=== PATIENT | male | born 1985 | race Caucasian/White ===

== ENCOUNTER 2018-10-08 15:59 | Emergency (ER) | payer OTHER, MEDICAID, SELFPAY ==
[2018-10-08 16:13] VITALS: BP 103/72; PULSE 85; RESP 16; TEMP 37.1; O2SAT 97
--- NOTE | 2018-10-08 17:16 | ED.ALCOHOL ---
HPI - Alcohol <ROMAIN Hogan - Last Filed: 10/08/18 20:05> General Chief Complaint: Toxicology Problem Stated Complaint: OPIATE WITHDRAWAL Time Seen by Provider: 10/08/18 16:53 Source: patient Mode of arrival: ambulatory Limitations: no limitations History of Present Illness HPI narrative: 33yo male with PMH of opioid use x 3 years is here for assistance with finding opioid detox. He has recently started using heroin over the past few days with last use being 1 days ago. Also reports drinking a 6 pack of beer a day for the past few years with last drink being 3 days ago. Denies ever seeking detox before, arrives with supportive family. Denies headaches, hallucinations, diaphoresis, n/v/d, tremors, myalgias, chest pain, SOB, or severe cravings at this time. Related Data Previous Rx's Medication Instructions Recorded hydroxyzine HCl 25 mg PO Q6-8H PRN #10 tab 10/08/18 ondansetron HCl [Zofran] 4 mg PO Q8-12H PRN 4 Days #10 tab 10/08/18 Allergies Allergy/AdvReac Type Severity Reaction Status Date / Time No Known Drug Allergies Allergy Verified 10/08/18 16:16 Review of Systems <ROMAIN Hogan - Last Filed: 10/08/18 20:05> Review of Systems ROS Unobtainable: All systems reviewed & are unremarkable except as noted in HPI and below PFSH <ROMAIN Hogan - Last Filed: 10/08/18 20:05> Medical History (Updated 10/08/18 @ 19:28 by ROMAIN Hogan) Opioid abuse (Chronic) Surgical History (Updated 10/08/18 @ 19:42 by ROMAIN Hogan) No pertinent past surgical history (Acute) Social History details: Here with family. household members: family lives independently: No caregiver/support person: Yes Smoking Status: Current every day smoker Social History details: Here with family. household members: family lives independently: No caregiver/support person: Yes Smoking Status: Current every day smoker Exam <ROMAIN Hogan - Last Filed: 10/08/18 20:05> Narrative Exam Narrative: Initial CIWA Score of 1 Initial Vital Signs Initial Vital Signs: Vital Signs Temperature 98.7 F 10/08/18 16:13 Pulse Rate 85 10/08/18 16:13 Respiratory Rate 16 10/08/18 16:13 Blood Pressure 103/72 10/08/18 16:13 Pulse Oximetry 97 10/08/18 16:13 Const General: cooperative, well developed, well groomed and anxious Nutritional Appearance: average body habitus and well nourished HENND Head: normal to inspection, normocephalic and atraumatic Eyes General: appearance normal, both eyes and all related structures Pupils: PERRL Neck Neck: normal visual inspection Chest Chest: normal inspection of the chest Resp Effort & Inspection: normal respiratory effort and able to speak in complete sentences Cardio Rate: regular rate Rhythm: regular rhythm Heart Sounds: S1 normal and S2 normal GI Inspection: normal to inspection Palpation: soft Auscultation: normal bowel sounds Skin General: no rashes or lesions noted and elasticity normal Neuro General: alert, awake, oriented x3, gait normal, tone normal, moves all extremities and normal light touch, pain and propioception <Romero Razo MD - Last Filed: 10/09/18 05:35> Initial Vital Signs Initial Vital Signs: Vital Signs Temperature 98.7 F 10/08/18 16:13 Pulse Rate 85 10/08/18 16:13 Respiratory Rate 16 10/08/18 16:13 Blood Pressure 103/72 10/08/18 16:13 Pulse Oximetry 97 10/08/18 16:13 Scores <ROMAIN Hogan - Last Filed: 10/08/18 20:05> GCS [place] coma scale eye opening: Spontaneous Aries coma scale verbal response: Orientated [place] coma scale motor response: Obey commands Aries coma scale total score: 15 Course <ROMAIN Hogan - Last Filed: 10/08/18 20:05> Course Narrative: ELECTRICAL TESTER spoke with patient, patient is prefering inpatient treatment. [facility] in [place] was consulted, medical clearance not needed for admission per Crisis Center, was told that patient can call at [phone] to see if a bed is avaliable. DEMARIO Carson gave patient [facility] detox resources as well as [facility] outpatient resources, patient and family ok with this plan. Patient developed slight nausea during visit that resolved with ODT zofran and food (CIWA score of 2). Patient and family ok with plan to discharge patient and follow up with crisis center and DENNIS restrepo tomorrow if not admitted. Orders Ordered: Discontinued Medications Ondansetron HCl (Zofran Odt) 4 mg SL NOW ONE Stop: 10/08/18 18:30 Last Admin: 10/08/18 18:29 Dose: 4 mg Vital Signs - 8 hr 10/08/18 16:13 10/08/18 19:08 Temperature 98.7 F Pulse Rate 85 78 Respiratory Rate 16 14 Blood Pressure 103/72 Blood Pressure [Right Arm] 104/72 Pulse Oximetry 97 98 <Romero Razo MD - Last Filed: 10/09/18 05:35> Orders Ordered: Discontinued Medications Ondansetron HCl (Zofran Odt) 4 mg SL NOW ONE Stop: 10/08/18 18:30 Last Admin: 10/08/18 18:29 Dose: 4 mg Vital Signs - 8 hr 10/08/18 16:13 10/08/18 19:08 Temperature 98.7 F Pulse Rate 85 78 Respiratory Rate 16 14 Blood Pressure 103/72 Blood Pressure [Right Arm] 104/72 Pulse Oximetry 97 98 MDM - Alcohol <ROMAIN Hogan - Last Filed: 10/08/18 20:05> Medical Records Attestation: I reviewed the patient's medical records. Lab Data Attestation: I reviewed the patient's lab results. Result diagrams: 10/08/18 18:02 10/08/18 18:02 Labs: Lab Results 10/08/18 10/08/18 10/08/18 Range/Units 18:02 18:02 18:02 WBC 8.5 (4.5-11.0) X10^3/uL RBC 5.08 (4.5-5.9) X10^6/uL Hgb 15.7 (13.5-17.5) g/dL Hct 45.4 (41-53) % MCV 89.4 (80-100) fL MCH 30.8 (26-34) PG MCHC 34.5 (30-36) % RDW 13.0 (11.6-14.8) % Plt Count 231 (150-400) X10^3/uL Neut % (Auto) 71.4 (50-75) % Lymph % (Auto) 21.1 L (25-40) % Tripp % (Auto) 5.8 (3-14) % Eos % (Auto) 1.2 L (2-4) % Baso % (Auto) 0.5 (0-2) % Neut # (Auto) 6100 (6554-1874) /uL Lymph # (Auto) 1800 (2772-2958) /uL Tripp # (Auto) 500 (0-900) /uL Eos # (Auto) 100 (0-450) /uL Baso # (Auto) 0 (0-100) /uL Sodium 140 (137-145) mmol/L Potassium 4.4 (3.4-5.1) mmol/L Chloride 101 (98-107) mmol/L Carbon Dioxide 27 (22-32) mmol/L BUN 18 (9-20) mg/dL Creatinine 0.70 (0.66-1.25) mg/dL Estimated GFR > 60.0 (>60) mL/min BUN/Creatinine Ratio 25.7 H (6-22) Glucose 99 (70-100) mg/dL Calcium 9.9 (8.4-10.2) mg/dL Total Bilirubin 0.6 (0.2-1.3) mg/dL AST 17 (17-59) IU/L ALT 24 (21-72) IU/L Alkaline Phosphatase 70 (38-126) U/L Total Protein 7.6 (6.3-8.2) g/dL Albumin 4.7 (3.5-5.0) g/dL Globulin 2.9 (1.7-4.1) g/dL Albumin/Globulin Ratio 1.6 (1.0-2.8) TSH 0.65 (0.47-4.68) uIU/mL Urine Color Urine Appearance Urine pH (4.5-8.0) Ur Specific [place] (1.000-1.035) Urine Protein (Negative) Urine Glucose (UA) (Negative) g/dL Urine Ketones (NEGATIVE) Urine Occult Blood (Negative) Urine Nitrate (Negative) Urine Bilirubin (NEGATIVE) Urine Urobilinogen (0.2) E.U./dL Ur Leukocyte Esterase (NEGATIVE) Urine RBC (0-5/HPF) Urine WBC (0-5/HPF) Ur Squamous Epith Cells (0-5/HPF) Urine Bacteria (None) Urine Mucus (Negative) Ur Culture Indicated? Urine Opiates Screen (Negative) Ur Oxycodone Screen (Negative) Urine Methadone Screen (Negative) Ur Barbiturates Screen (Negative) U Tricyclic Antidepress (Negative) Ur Phencyclidine Scrn (Negative) Ur Amphetamines Screen (Negative) U Methamphetamines Scrn (Negative) Ur MDMA Scrn (Ecstasy) (Negative) U Benzodiazepines Scrn (Negative) Urine Cocaine Screen (Negative) U Marijuana (THC) Screen (Negative) Ethyl Alcohol mg/dL 10/08/18 10/08/18 10/08/18 Range/Units 18:02 18:24 18:24 WBC (4.5-11.0) X10^3/uL RBC (4.5-5.9) X10^6/uL Hgb (13.5-17.5) g/dL Hct (41-53) % MCV (80-100) fL MCH (26-34) PG MCHC (30-36) % RDW (11.6-14.8) % Plt Count (150-400) X10^3/uL Neut % (Auto) (50-75) % Lymph % (Auto) (25-40) % Tripp % (Auto) (3-14) % Eos % (Auto) (2-4) % Baso % (Auto) (0-2) % Neut # (Auto) (1527-2044) /uL Lymph # (Auto) (0332-3092) /uL Tripp # (Auto) (0-900) /uL Eos # (Auto) (0-450) /uL Baso # (Auto) (0-100) /uL Sodium (137-145) mmol/L Potassium (3.4-5.1) mmol/L Chloride (98-107) mmol/L Carbon Dioxide (22-32) mmol/L BUN (9-20) mg/dL Creatinine (0.66-1.25) mg/dL Estimated GFR (>60) mL/min BUN/Creatinine Ratio (6-22) Glucose (70-100) mg/dL Calcium (8.4-10.2) mg/dL Total Bilirubin (0.2-1.3) mg/dL AST (17-59) IU/L ALT (21-72) IU/L Alkaline Phosphatase (38-126) U/L Total Protein (6.3-8.2) g/dL Albumin (3.5-5.0) g/dL Globulin (1.7-4.1) g/dL Albumin/Globulin Ratio (1.0-2.8) TSH (0.47-4.68) uIU/mL Urine Color Yellow Urine Appearance Clear Urine pH 6.0 (4.5-8.0) Ur Specific [place] 1.025 (1.000-1.035) Urine Protein Negative (Negative) Urine Glucose (UA) Negative (Negative) g/dL Urine Ketones Negative (NEGATIVE) Urine Occult Blood Negative (Negative) Urine Nitrate Negative (Negative) Urine Bilirubin Negative (NEGATIVE) Urine Urobilinogen 0.2 (0.2) E.U./dL Ur Leukocyte Esterase Negative (NEGATIVE) Urine RBC 1-5/hpf (0-5/HPF) Urine WBC None seen (0-5/HPF) Ur Squamous Epith Cells 0-1 /hpf (0-5/HPF) Urine Bacteria None seen (None) Urine Mucus 1+ H (Negative) Ur Culture Indicated? Cult not indicated Urine Opiates Screen Positive H (Negative) Ur Oxycodone Screen Negative (Negative) Urine Methadone Screen Negative (Negative) Ur Barbiturates Screen Negative (Negative) U Tricyclic Antidepress Negative (Negative) Ur Phencyclidine Scrn Negative (Negative) Ur Amphetamines Screen Positive H (Negative) U Methamphetamines Scrn Positive H (Negative) Ur MDMA Scrn (Ecstasy) Negative (Negative) U Benzodiazepines Scrn Negative (Negative) Urine Cocaine Screen Negative (Negative) U Marijuana (THC) Screen Positive H (Negative) Ethyl Alcohol < 10 mg/dL MDM Narrative Medical decision making narrative: Patient is a 33yo male with chronic opioid use here for voluntary detox. Supportive family willing to assist patient with connection to detox. [facility] stated they did not need medical clearance so discharge was appropriate. Low suspicion of ETOH withdrawal as patient's last drink was 3 days ago, ETOH level < 10, and highest CIWA score of 2 during visit. <Romero Razo MD - Last Filed: 10/09/18 05:35> Lab Data Labs: Lab Results 10/08/18 10/08/18 10/08/18 Range/Units 18:02 18:02 18:02 WBC 8.5 (4.5-11.0) X10^3/uL RBC 5.08 (4.5-5.9) X10^6/uL Hgb 15.7 (13.5-17.5) g/dL Hct 45.4 (41-53) % MCV 89.4 (80-100) fL MCH 30.8 (26-34) PG MCHC 34.5 (30-36) % RDW 13.0 (11.6-14.8) % Plt Count 231 (150-400) X10^3/uL Neut % (Auto) 71.4 (50-75) % Lymph % (Auto) 21.1 L (25-40) % Tripp % (Auto) 5.8 (3-14) % Eos % (Auto) 1.2 L (2-4) % Baso % (Auto) 0.5 (0-2) % Neut # (Auto) 6100 (5091-1346) /uL Lymph # (Auto) 1800 (6761-1512) /uL Tripp # (Auto) 500 (0-900) /uL Eos # (Auto) 100 (0-450) /uL Baso # (Auto) 0 (0-100) /uL Sodium 140 (137-145) mmol/L Potassium 4.4 (3.4-5.1) mmol/L Chloride 101 (98-107) mmol/L Carbon Dioxide 27 (22-32) mmol/L BUN 18 (9-20) mg/dL Creatinine 0.70 (0.66-1.25) mg/dL Estimated GFR > 60.0 (>60) mL/min BUN/Creatinine Ratio 25.7 H (6-22) Glucose 99 (70-100) mg/dL Calcium 9.9 (8.4-10.2) mg/dL Total Bilirubin 0.6 (0.2-1.3) mg/dL AST 17 (17-59) IU/L ALT 24 (21-72) IU/L Alkaline Phosphatase 70 (38-126) U/L Total Protein 7.6 (6.3-8.2) g/dL Albumin 4.7 (3.5-5.0) g/dL Globulin 2.9 (1.7-4.1) g/dL Albumin/Globulin Ratio 1.6 (1.0-2.8) TSH 0.65 (0.47-4.68) uIU/mL Urine Color Urine Appearance Urine pH (4.5-8.0) Ur Specific [place] (1.000-1.035) Urine Protein (Negative) Urine Glucose (UA) (Negative) g/dL Urine Ketones (NEGATIVE) Urine Occult Blood (Negative) Urine Nitrate (Negative) Urine Bilirubin (NEGATIVE) Urine Urobilinogen (0.2) E.U./dL Ur Leukocyte Esterase (NEGATIVE) Urine RBC (0-5/HPF) Urine WBC (0-5/HPF) Ur Squamous Epith Cells (0-5/HPF) Urine Bacteria (None) Urine Mucus (Negative) Ur Culture Indicated? Urine Opiates Screen (Negative) Ur Oxycodone Screen (Negative) Urine Methadone Screen (Negative) Ur Barbiturates Screen (Negative) U Tricyclic Antidepress (Negative) Ur Phencyclidine Scrn (Negative) Ur Amphetamines Screen (Negative) U Methamphetamines Scrn (Negative) Ur MDMA Scrn (Ecstasy) (Negative) U Benzodiazepines Scrn (Negative) Urine Cocaine Screen (Negative) U Marijuana (THC) Screen (Negative) Ethyl Alcohol mg/dL 10/08/18 10/08/18 10/08/18 Range/Units 18:02 18:24 18:24 WBC (4.5-11.0) X10^3/uL RBC (4.5-5.9) X10^6/uL Hgb (13.5-17.5) g/dL Hct (41-53) % MCV (80-100) fL MCH (26-34) PG MCHC (30-36) % RDW (11.6-14.8) % Plt Count (150-400) X10^3/uL Neut % (Auto) (50-75) % Lymph % (Auto) (25-40) % Tripp % (Auto) (3-14) % Eos % (Auto) (2-4) % Baso % (Auto) (0-2) % Neut # (Auto) (0219-1782) /uL Lymph # (Auto) (1084-4769) /uL Tripp # (Auto) (0-900) /uL Eos # (Auto) (0-450) /uL Baso # (Auto) (0-100) /uL Sodium (137-145) mmol/L Potassium (3.4-5.1) mmol/L Chloride (98-107) mmol/L Carbon Dioxide (22-32) mmol/L BUN (9-20) mg/dL Creatinine (0.66-1.25) mg/dL Estimated GFR (>60) mL/min BUN/Creatinine Ratio (6-22) Glucose (70-100) mg/dL Calcium (8.4-10.2) mg/dL Total Bilirubin (0.2-1.3) mg/dL AST (17-59) IU/L ALT (21-72) IU/L Alkaline Phosphatase (38-126) U/L Total Protein (6.3-8.2) g/dL Albumin (3.5-5.0) g/dL Globulin (1.7-4.1) g/dL Albumin/Globulin Ratio (1.0-2.8) TSH (0.47-4.68) uIU/mL Urine Color Yellow Urine Appearance Clear Urine pH 6.0 (4.5-8.0) Ur Specific [place] 1.025 (1.000-1.035) Urine Protein Negative (Negative) Urine Glucose (UA) Negative (Negative) g/dL Urine Ketones Negative (NEGATIVE) Urine Occult Blood Negative (Negative) Urine Nitrate Negative (Negative) Urine Bilirubin Negative (NEGATIVE) Urine Urobilinogen 0.2 (0.2) E.U./dL Ur Leukocyte Esterase Negative (NEGATIVE) Urine RBC 1-5/hpf (0-5/HPF) Urine WBC None seen (0-5/HPF) Ur Squamous Epith Cells 0-1 /hpf (0-5/HPF) Urine Bacteria None seen (None) Urine Mucus 1+ H (Negative) Ur Culture Indicated? Cult not indicated Urine Opiates Screen Positive H (Negative) Ur Oxycodone Screen Negative (Negative) Urine Methadone Screen Negative (Negative) Ur Barbiturates Screen Negative (Negative) U Tricyclic Antidepress Negative (Negative) Ur Phencyclidine Scrn Negative (Negative) Ur Amphetamines Screen Positive H (Negative) U Methamphetamines Scrn Positive H (Negative) Ur MDMA Scrn (Ecstasy) Negative (Negative) U Benzodiazepines Scrn Negative (Negative) Urine Cocaine Screen Negative (Negative) U Marijuana (THC) Screen Positive H (Negative) Ethyl Alcohol < 10 mg/dL Critical Care Time <ROMAIN Hogan - Last Filed: 10/08/18 20:05> Critical Care Time: No Discharge Plan Departure Patient Disposition: Home Clinical Impression: Opioid use with withdrawal Discharge Date/Time: 10/08/18 19:57 Interventions: ED Discharge Assessment Last Done: 10/08/18 19:57 Instructions: DI for Alcohol Abuse, DI for Drug Abuse and Drug Addiction Activity Restrictions/Additional Instructions: Thank you for seeking care at [facility] today. Call [facility] at [phone] to see if a bed is available, Yamileth our social media specialist also gave you outpatient resources to contact if needed. Follow-up with your primary care provider tomorrow as scheduled. I have prescribed you medication for nausea and opioid withdrawal. Return to the emergency department if you experience profuse sweating, tremors, seizures, or chest pain. Prescriptions: New hydroxyzine HCl 25 mg tablet 25 mg PO Q6-8H PRN (Reason: nausea and vomiting, opioid withdrawal ) Qty: 10 RF: 0 ondansetron HCl [Zofran] 4 mg tablet 4 mg PO Q8-12H PRN (Reason: nausea and vomiting) 4 Days Qty: 10 RF: 0 <Romero Razo MD - Last Filed: 10/09/18 05:35> Cosign ED Attending Cosignature Attestation: I was present in the ER at the time this patient's care. I agree with the evaluation, assessment and treatment plan.
--- NOTE | 2018-10-08 17:21 | ED_ITS ---
HPI - Alcohol <ROMAIN Hogan - Last Filed: 10/08/18 20:05> General Chief Complaint: Toxicology Problem Stated Complaint: OPIATE WITHDRAWAL Time Seen by Provider: 10/08/18 16:53 Source: patient Mode of arrival: ambulatory Limitations: no limitations History of Present Illness HPI narrative: 33yo male with PMH of opioid use x 3 years is here for assistance with finding opioid detox. He has recently started using heroin over the past few days with last use being 1 days ago. Also reports drinking a 6 pack of beer a day for the past few years with last drink being 3 days ago. Denies ever seeking detox before, arrives with supportive family. Denies headaches, hallucinations, diaphoresis, n/v/d, tremors, myalgias, chest pain, SOB, or severe cravings at this time. Related Data Previous Rx's Medication Instructions Recorded hydroxyzine HCl 25 mg PO Q6-8H PRN #10 tab 10/08/18 ondansetron HCl [Zofran] 4 mg PO Q8-12H PRN 4 Days #10 tab 10/08/18 Allergies Allergy/AdvReac Type Severity Reaction Status Date / Time No Known Drug Allergies Allergy Verified 10/08/18 16:16 Review of Systems <ROMAIN Hogan - Last Filed: 10/08/18 20:05> Review of Systems ROS Unobtainable: All systems reviewed & are unremarkable except as noted in HPI and below PFSH <ROMAIN Hogan - Last Filed: 10/08/18 20:05> Medical History (Updated 10/08/18 @ 19:28 by ROMAIN Hogan) Opioid abuse (Chronic) Surgical History (Updated 10/08/18 @ 19:42 by ROAMIN Hogan) No pertinent past surgical history (Acute) Social History details: Here with family. household members: family lives independently: No caregiver/support person: Yes Smoking Status: Current every day smoker Social History details: Here with family. household members: family lives independently: No caregiver/support person: Yes Smoking Status: Current every day smoker Exam <ROMAIN Hogan - Last Filed: 10/08/18 20:05> Narrative Exam Narrative: Initial CIWA Score of 1 Initial Vital Signs Initial Vital Signs: Vital Signs Temperature 98.7 F 10/08/18 16:13 Pulse Rate 85 10/08/18 16:13 Respiratory Rate 16 10/08/18 16:13 Blood Pressure 103/72 10/08/18 16:13 Pulse Oximetry 97 10/08/18 16:13 Const General: cooperative, well developed, well groomed and anxious Nutritional Appearance: average body habitus and well nourished HENNY Head: normal to inspection, normocephalic and atraumatic Eyes General: appearance normal, both eyes and all related structures Pupils: PERRL Neck Neck: normal visual inspection Chest Chest: normal inspection of the chest Resp Effort & Inspection: normal respiratory effort and able to speak in complete sentences Cardio Rate: regular rate Rhythm: regular rhythm Heart Sounds: S1 normal and S2 normal GI Inspection: normal to inspection Palpation: soft Auscultation: normal bowel sounds Skin General: no rashes or lesions noted and elasticity normal Neuro General: alert, awake, oriented x3, gait normal, tone normal, moves all extremities and normal light touch, pain and propioception <Romero Razo MD - Last Filed: 10/09/18 05:35> Initial Vital Signs Initial Vital Signs: Vital Signs Temperature 98.7 F 10/08/18 16:13 Pulse Rate 85 10/08/18 16:13 Respiratory Rate 16 10/08/18 16:13 Blood Pressure 103/72 10/08/18 16:13 Pulse Oximetry 97 10/08/18 16:13 Scores <ROMAIN Hogan - Last Filed: 10/08/18 20:05> GCS Napoleon coma scale eye opening: Spontaneous Aries coma scale verbal response: Orientated Napoleon coma scale motor response: Obey commands Aries coma scale total score: 15 Course <ROMAIN Hogan - Last Filed: 10/08/18 20:05> Course Narrative: MARINE DIESEL TECHNICIAN spoke with patient, patient is prefering inpatient treatment. [facility] in [place] was consulted, medical clearance not needed for admission per Crisis Center, was told that patient can call at [phone] to see if a bed is avaliable. DEMARIO Carson gave patient [facility] detox resources as well as [facility] outpatient resources, patient and family ok with this plan. Patient developed slight nausea during visit that resolved with ODT zofran and food (CIWA score of 2). Patient and family ok with plan to discharge patient and follow up with crisis center and DENNIS restrepo tomorrow if not admitted. Orders Ordered: Discontinued Medications Ondansetron HCl (Zofran Odt) 4 mg SL NOW ONE Stop: 10/08/18 18:30 Last Admin: 10/08/18 18:29 Dose: 4 mg Vital Signs - 8 hr 10/08/18 16:13 10/08/18 19:08 Temperature 98.7 F Pulse Rate 85 78 Respiratory Rate 16 14 Blood Pressure 103/72 Blood Pressure [Right Arm] 104/72 Pulse Oximetry 97 98 <Romero Razo MD - Last Filed: 10/09/18 05:35> Orders Ordered: Discontinued Medications Ondansetron HCl (Zofran Odt) 4 mg SL NOW ONE Stop: 10/08/18 18:30 Last Admin: 10/08/18 18:29 Dose: 4 mg Vital Signs - 8 hr 10/08/18 16:13 10/08/18 19:08 Temperature 98.7 F Pulse Rate 85 78 Respiratory Rate 16 14 Blood Pressure 103/72 Blood Pressure [Right Arm] 104/72 Pulse Oximetry 97 98 MDM - Alcohol <ROMAIN Hogan - Last Filed: 10/08/18 20:05> Medical Records Attestation: I reviewed the patient's medical records. Lab Data Attestation: I reviewed the patient's lab results. Result diagrams: 10/08/18 18:02 10/08/18 18:02 Labs: Lab Results 10/08/18 10/08/18 10/08/18 Range/Units 18:02 18:02 18:02 WBC 8.5 (4.5-11.0) X10^3/uL RBC 5.08 (4.5-5.9) X10^6/uL Hgb 15.7 (13.5-17.5) g/dL Hct 45.4 (41-53) % MCV 89.4 (80-100) fL MCH 30.8 (26-34) PG MCHC 34.5 (30-36) % RDW 13.0 (11.6-14.8) % Plt Count 231 (150-400) X10^3/uL Neut % (Auto) 71.4 (50-75) % Lymph % (Auto) 21.1 L (25-40) % [place] % (Auto) 5.8 (3-14) % Eos % (Auto) 1.2 L (2-4) % Baso % (Auto) 0.5 (0-2) % Neut # (Auto) 6100 (4373-3493) /uL Lymph # (Auto) 1800 (9936-9607) /uL [place] # (Auto) 500 (0-900) /uL Eos # (Auto) 100 (0-450) /uL Baso # (Auto) 0 (0-100) /uL Sodium 140 (137-145) mmol/L Potassium 4.4 (3.4-5.1) mmol/L Chloride 101 (98-107) mmol/L Carbon Dioxide 27 (22-32) mmol/L BUN 18 (9-20) mg/dL Creatinine 0.70 (0.66-1.25) mg/dL Estimated GFR > 60.0 (>60) mL/min BUN/Creatinine Ratio 25.7 H (6-22) Glucose 99 (70-100) mg/dL Calcium 9.9 (8.4-10.2) mg/dL Total Bilirubin 0.6 (0.2-1.3) mg/dL AST 17 (17-59) IU/L ALT 24 (21-72) IU/L Alkaline Phosphatase 70 (38-126) U/L Total Protein 7.6 (6.3-8.2) g/dL Albumin 4.7 (3.5-5.0) g/dL Globulin 2.9 (1.7-4.1) g/dL Albumin/Globulin Ratio 1.6 (1.0-2.8) TSH 0.65 (0.47-4.68) uIU/mL Urine Color Urine Appearance Urine pH (4.5-8.0) Ur Specific [place] (1.000-1.035) Urine Protein (Negative) Urine Glucose (UA) (Negative) g/dL Urine Ketones (NEGATIVE) Urine Occult Blood (Negative) Urine Nitrate (Negative) Urine Bilirubin (NEGATIVE) Urine Urobilinogen (0.2) E.U./dL Ur Leukocyte Esterase (NEGATIVE) Urine RBC (0-5/HPF) Urine WBC (0-5/HPF) Ur Squamous Epith Cells (0-5/HPF) Urine Bacteria (None) Urine Mucus (Negative) Ur Culture Indicated? Urine Opiates Screen (Negative) Ur Oxycodone Screen (Negative) Urine Methadone Screen (Negative) Ur Barbiturates Screen (Negative) U Tricyclic Antidepress (Negative) Ur Phencyclidine Scrn (Negative) Ur Amphetamines Screen (Negative) U Methamphetamines Scrn (Negative) Ur MDMA Scrn (Ecstasy) (Negative) U Benzodiazepines Scrn (Negative) Urine Cocaine Screen (Negative) U Marijuana (THC) Screen (Negative) Ethyl Alcohol mg/dL 10/08/18 10/08/18 10/08/18 Range/Units 18:02 18:24 18:24 WBC (4.5-11.0) X10^3/uL RBC (4.5-5.9) X10^6/uL Hgb (13.5-17.5) g/dL Hct (41-53) % MCV (80-100) fL MCH (26-34) PG MCHC (30-36) % RDW (11.6-14.8) % Plt Count (150-400) X10^3/uL Neut % (Auto) (50-75) % Lymph % (Auto) (25-40) % [place] % (Auto) (3-14) % Eos % (Auto) (2-4) % Baso % (Auto) (0-2) % Neut # (Auto) (5639-5029) /uL Lymph # (Auto) (3764-0686) /uL [place] # (Auto) (0-900) /uL Eos # (Auto) (0-450) /uL Baso # (Auto) (0-100) /uL Sodium (137-145) mmol/L Potassium (3.4-5.1) mmol/L Chloride (98-107) mmol/L Carbon Dioxide (22-32) mmol/L BUN (9-20) mg/dL Creatinine (0.66-1.25) mg/dL Estimated GFR (>60) mL/min BUN/Creatinine Ratio (6-22) Glucose (70-100) mg/dL Calcium (8.4-10.2) mg/dL Total Bilirubin (0.2-1.3) mg/dL AST (17-59) IU/L ALT (21-72) IU/L Alkaline Phosphatase (38-126) U/L Total Protein (6.3-8.2) g/dL Albumin (3.5-5.0) g/dL Globulin (1.7-4.1) g/dL Albumin/Globulin Ratio (1.0-2.8) TSH (0.47-4.68) uIU/mL Urine Color Yellow Urine Appearance Clear Urine pH 6.0 (4.5-8.0) Ur Specific [place] 1.025 (1.000-1.035) Urine Protein Negative (Negative) Urine Glucose (UA) Negative (Negative) g/dL Urine Ketones Negative (NEGATIVE) Urine Occult Blood Negative (Negative) Urine Nitrate Negative (Negative) Urine Bilirubin Negative (NEGATIVE) Urine Urobilinogen 0.2 (0.2) E.U./dL Ur Leukocyte Esterase Negative (NEGATIVE) Urine RBC 1-5/hpf (0-5/HPF) Urine WBC None seen (0-5/HPF) Ur Squamous Epith Cells 0-1 /hpf (0-5/HPF) Urine Bacteria None seen (None) Urine Mucus 1+ H (Negative) Ur Culture Indicated? Cult not indicated Urine Opiates Screen Positive H (Negative) Ur Oxycodone Screen Negative (Negative) Urine Methadone Screen Negative (Negative) Ur Barbiturates Screen Negative (Negative) U Tricyclic Antidepress Negative (Negative) Ur Phencyclidine Scrn Negative (Negative) Ur Amphetamines Screen Positive H (Negative) U Methamphetamines Scrn Positive H (Negative) Ur MDMA Scrn (Ecstasy) Negative (Negative) U Benzodiazepines Scrn Negative (Negative) Urine Cocaine Screen Negative (Negative) U Marijuana (THC) Screen Positive H (Negative) Ethyl Alcohol < 10 mg/dL MDM Narrative Medical decision making narrative: Patient is a 33yo male with chronic opioid use here for voluntary detox. Supportive family willing to assist patient with connection to detox. [facility] stated they did not need medical cl earance so discharge was appropriate. Low suspicion of ETOH withdrawal as patient's last drink was 3 days ago, ETOH level < 10, and highest CIWA score of 2 during visit. <Romero Razo MD - Last Filed: 10/09/18 05:35> Lab Data Labs: Lab Results 10/08/18 10/08/18 10/08/18 Range/Units 18:02 18:02 18:02 WBC 8.5 (4.5-11.0) X10^3/uL RBC 5.08 (4.5-5.9) X10^6/uL Hgb 15.7 (13.5-17.5) g/dL Hct 45.4 (41-53) % MCV 89.4 (80-100) fL MCH 30.8 (26-34) PG MCHC 34.5 (30-36) % RDW 13.0 (11.6-14.8) % Plt Count 231 (150-400) X10^3/uL Neut % (Auto) 71.4 (50-75) % Lymph % (Auto) 21.1 L (25-40) % [place] % (Auto) 5.8 (3-14) % Eos % (Auto) 1.2 L (2-4) % Baso % (Auto) 0.5 (0-2) % Neut # (Auto) 6100 (4306-1024) /uL Lymph # (Auto) 1800 (6006-4498) /uL [place] # (Auto) 500 (0-900) /uL Eos # (Auto) 100 (0-450) /uL Baso # (Auto) 0 (0-100) /uL Sodium 140 (137-145) mmol/L Potassium 4.4 (3.4-5.1) mmol/L Chloride 101 (98-107) mmol/L Carbon Dioxide 27 (22-32) mmol/L BUN 18 (9-20) mg/dL Creatinine 0.70 (0.66-1.25) mg/dL Estimated GFR > 60.0 (>60) mL/min BUN/Creatinine Ratio 25.7 H (6-22) Glucose 99 (70-100) mg/dL Calcium 9.9 (8.4-10.2) mg/dL Total Bilirubin 0.6 (0.2-1.3) mg/dL AST 17 (17-59) IU/L ALT 24 (21-72) IU/L Alkaline Phosphatase 70 (38-126) U/L Total Protein 7.6 (6.3-8.2) g/dL Albumin 4.7 (3.5-5.0) g/dL Globulin 2.9 (1.7-4.1) g/dL Albumin/Globulin Ratio 1.6 (1.0-2.8) TSH 0.65 (0.47-4.68) uIU/mL Urine Color Urine Appearance Urine pH (4.5-8.0) Ur Specific [place] (1.000-1.035) Urine Protein (Negative) Urine Glucose (UA) (Negative) g/dL Urine Ketones (NEGATIVE) Urine Occult Blood (Negative) Urine Nitrate (Negative) Urine Bilirubin (NEGATIVE) Urine Urobilinogen (0.2) E.U./dL Ur Leukocyte Esterase (NEGATIVE) Urine RBC (0-5/HPF) Urine WBC (0-5/HPF) Ur Squamous Epith Cells (0-5/HPF) Urine Bacteria (None) Urine Mucus (Negative) Ur Culture Indicated? Urine Opiates Screen (Negative) Ur Oxycodone Screen (Negative) Urine Methadone Screen (Negative) Ur Barbiturates Screen (Negative) U Tricyclic Antidepress (Negative) Ur Phencyclidine Scrn (Negative) Ur Amphetamines Screen (Negative) U Methamphetamines Scrn (Negative) Ur MDMA Scrn (Ecstasy) (Negative) U Benzodiazepines Scrn (Negative) Urine Cocaine Screen (Negative) U Marijuana (THC) Screen (Negative) Ethyl Alcohol mg/dL 10/08/18 10/08/18 10/08/18 Range/Units 18:02 18:24 18:24 WBC (4.5-11.0) X10^3/uL RBC (4.5-5.9) X10^6/uL Hgb (13.5-17.5) g/dL Hct (41-53) % MCV (80-100) fL MCH (26-34) PG MCHC (30-36) % RDW (11.6-14.8) % Plt Count (150-400) X10^3/uL Neut % (Auto) (50-75) % Lymph % (Auto) (25-40) % [place] % (Auto) (3-14) % Eos % (Auto) (2-4) % Baso % (Auto) (0-2) % Neut # (Auto) (5664-3775) /uL Lymph # (Auto) (9034-7385) /uL [place] # (Auto) (0-900) /uL Eos # (Auto) (0-450) /uL Baso # (Auto) (0-100) /uL Sodium (137-145) mmol/L Potassium (3.4-5.1) mmol/L Chloride (98-107) mmol/L Carbon Dioxide (22-32) mmol/L BUN (9-20) mg/dL Creatinine (0.66-1.25) mg/dL Estimated GFR (>60) mL/min BUN/Creatinine Ratio (6-22) Glucose (70-100) mg/dL Calcium (8.4-10.2) mg/dL Total Bilirubin (0.2-1.3) mg/dL AST (17-59) IU/L ALT (21-72) IU/L Alkaline Phosphatase (38-126) U/L Total Protein (6.3-8.2) g/dL Albumin (3.5-5.0) g/dL Globulin (1.7-4.1) g/dL Albumin/Globulin Ratio (1.0-2.8) TSH (0.47-4.68) uIU/mL Urine Color Yellow Urine Appearance Clear Urine pH 6.0 (4.5-8.0) Ur Specific [place] 1.025 (1.000-1.035) Urine Protein Negative (Negative) Urine Glucose (UA) Negative (Negative) g/dL Urine Ketones Negative (NEGATIVE) Urine Occult Blood Negative (Negative) Urine Nitrate Negative (Negative) Urine Bilirubin Negative (NEGATIVE) Urine Urobilinogen 0.2 (0.2) E.U./dL Ur Leukocyte Esterase Negative (NEGATIVE) Urine RBC 1-5/hpf (0-5/HPF) Urine WBC None seen (0-5/HPF) Ur Squamous Epith Cells 0-1 /hpf (0-5/HPF) Urine Bacteria None seen (None) Urine Mucus 1+ H (Negative) Ur Culture Indicated? Cult not indicated Urine Opiates Screen Positive H (Negative) Ur Oxycodone Screen Negative (Negative) Urine Methadone Screen Negative (Negative) Ur Barbiturates Screen Negative (Negative) U Tricyclic Antidepress Negative (Negative) Ur Phencyclidine Scrn Negative (Negative) Ur Amphetamines Screen Positive H (Negative) U Methamphetamines Scrn Positive H (Negative) Ur MDMA Scrn (Ecstasy) Negative (Negative) U Benzodiazepines Scrn Negative (Negative) Urine Cocaine Screen Negative (Negative) U Marijuana (THC) Screen Positive H (Negative) Ethyl Alcohol < 10 mg/dL Critical Care Time <ROMAIN oHgan - Last Filed: 10/08/18 20:05> Critical Care Time: No Discharge Plan Departure Patient Disposition: Home Clinical Impression: Opioid use with withdrawal Discharge Date/Time: 10/08/18 19:57 Interventions: ED Discharge Assessment Last Done: 10/08/18 19:57 Instructions: DI for Alcohol Abuse, DI for Drug Abuse and Drug Addiction Activity Restrictions/Additional Instructions: Thank you for seeking care at [facility] today. Call [facility] at 2100 to see if a bed is available, Yamileth our social security benefits interviewer also gave you outpatient resources to contact if needed. Follow-up with your primary care provider tomorrow as scheduled. I have prescribed you medication for nausea and opioid withdrawal. Return to the emergency department if you experience profuse sweating, tremors, seizures, or chest pain. Prescriptions: New hydroxyzine HCl 25 mg tablet 25 mg PO Q6-8H PRN (Reason: nausea and vomiting, opioid withdrawal ) Qty: 10 RF: 0 ondansetron HCl [Zofran] 4 mg tablet 4 mg PO Q8-12H PRN (Reason: nausea and vomiting) 4 Days Qty: 10 RF: 0 <Romero Razo MD - Last Filed: 10/09/18 05:35> Cosign ED Attending Cosvickature Attestation: I was present in the ER at the time this patient's care. I agree with the evaluation, assessment and treatment plan.
[2018-10-08 18:09] LABS: Add Manual Diff / Slide Review NO; Basophils Absolute Auto 0 /uL (0-100); Basophils Percent Auto 0.5 % (0-2); Eosinophils Absolute Auto 100 /uL (0-450); Eosinophils Percent Auto 1.2 % (2-4); Hematocrit 45.4 % (41-53); Hemoglobin 15.7 g/dL (13.5-17.5); Lymphocytes Absolute Auto 1800 /uL (1100-4500); Lymphocytes Percent Auto 21.1 % (25-40); Mean Corpuscular HGB Conc 34.5 % (30-36); Mean Corpuscular Hemoglobin 30.8 PG (26-34); Mean Corpuscular Volume 89.4 fL (80-100); Monocytes Absolute Auto 500 /uL (0-900); Monocytes Percent Auto 5.8 % (3-14); Neutrophils Absolute Auto 6100 /uL (1500-7000); Neutrophils Percent Auto 71.4 % (50-75); Platelet Count 231 X10^3/uL (150-400); Red Blood Cell Count 5.08 X10^6/uL (4.5-5.9); White Blood Cell Count 8.5 X10^3/uL (4.5-11.0)
[2018-10-08 18:19] LABS: Ethanol (ETOH) < 10 mg/dL
[2018-10-08 18:20] LABS: Alanine Aminotransferase 24 IU/L (21-72); Albumin 4.7 g/dL (3.5-5.0); Albumin Globulin Ratio 1.6 (1.0-2.8); Alkaline Phosphatase 70 U/L (38-126); Aspartate Aminotransferase 17 IU/L (17-59); BUN Creatinine Ratio 25.7 (6-22); Bilirubin Total 0.6 mg/dL (0.2-1.3); Blood Urea Nitrogen 18 mg/dL (9-20); Calcium 9.9 mg/dL (8.4-10.2); Carbon Dioxide 27 mmol/L (22-32); Chloride 101 mmol/L (98-107); Estimated Glomerular Filt Rate > 60.0 mL/min (>60); Globulin 2.9 g/dL (1.7-4.1); Glucose 99 mg/dL (70-100); HEMOLYSIS < 15 (0-50); Potassium 4.4 mmol/L (3.4-5.1); Sodium 140 mmol/L (137-145); Total Protein 7.6 g/dL (6.3-8.2)
--- NOTE | 2018-10-08 18:27 | CM.SWNOTE ---
ED CORRECTIVE AND MANUAL ARTS THERAPIST Note Presenting Problem: Pt is a 33 yo male who presented to the Emergency Department today with his family. He is requesting help with detox and hopes to be able to go into an inpatient setting. He has recently begun using IV heroin with last use yesterday. Mental Health/Substance abuse Hx: Patient stated that he has dealt with both anxiety and depression. He has been prescribed prozac and Lexapro, but has been using opiates during this time, so it is unknown if these medications could have been beneficial. Pt began using alcohol at the age of 14/15. He stated that alcohol is not his drug of choice at this time. He was in an alcohol rehab in 2011 and reported that he was able to remain clean and sober for up to 2 years. Pt stated that this was located in [place] and believes this was a 28 day program. Pt. reported that he has been using hydrocodone and oxycodone for the past 3 years. He generally takes 5-10, 10 mg pills, but has been having more difficulty obtaining the opiates so recently switched to IV heroin. Pt's mother wondered if drug use began after his hernia operation in 2013. Pt stated that he did not begin the drug use at that time,b ut was introduced to the pain killers post operatively. Family History/ mental health/substance abuse: Pt. reported that his paternal grandfather was addicted to pain killers. it was noted by the family that he was a pharmacist by occupation. Pt's sister is also a recovering alcoholic. There is a significant family history for both anxiety and depression. Pt's other sister has had a history of anxiety and panic attacks. Mental Status: Pt is a 33 yo male who looks his stated age. Eye contact was fair to goo. He is very cooperative and motivated for treatment. Speech is normal for rate and rhythm and goal directed. There is no sign of any psychotic thought process. Pt appears to have good insight and judgment. He denies SI or HI. Memory test was not conducted, but pt's memory appears WNL. Plan: It is expected that pt will be discharged home and has been provided with names and phone numbers of detox facilities to contact tomorrow. It is possible that [facility] may have a bed this evening and if not still in the emergency department, they should call at 9 PM this evening. Pt is aware that he can return to the emergency department if symptoms worsen. Family is supportive and available to help patient make the phone calls as needed. Discharge Planning/Care Management ED Crisis Response Assessment Start: 10/08/18 18:14 Freq: Status: Active Protocol: Document 10/08/18 18:14 BG (Rec: 10/08/18 18:26 BG [id number]) ED Crisis Response Assessment CORRECTIVE AND MANUAL ARTS THERAPIST Assessment Type Substance Abuse Reason for CORRECTIVE AND MANUAL ARTS THERAPIST Referral Pt with hx of opiate abuse and recent IV heroin use requesting help with substance abuse. Referred by PAIGE Hogan Presenting Problem Pt reported a hx of taking hydrocodone, oxycodone, 5-10 10 mg per day. Most recently due to inability to get these drugs, he stated shooting up heroin. This has been for 12 days. Today he contacted his mother and sister and told them that he needed help. Mental health diagnosis Pt reports a hx of anxiety and depression. VOA/CMS check No Suicidal thoughts No Past Suicidal thoughts No Current Suicidal thoughts No Prior Suicide attempts No Current plan for self harm No Thoughts of harm to others No Past thoughts of harm to others No Current thoughts of harming others No Prior attempts to harm others No Current plan to harm others No Current Risk factors Substance abuse Financial difficulties Risk factor comments Pt reported that he is using all his money for drugs so has not had money for food, despite being employed and having a good job. Crisis Plan ED CORRECTIVE AND MANUAL ARTS THERAPIST has attempted to find inpatient programs at pt's request. At this time there are no beds available or programs are closed for the day. It is anticipated that pt will discharge home with family and contact the Crisis Center later t his evening. Pt 's record has been faxed to the crisis center. Resources Provided Pt and family have been provided with information for [facility] , [facility] , [facility] and [facility] [phone].
[2018-10-08] MEDS: ONDANSETRON 4 MG ODT SL (18:29)
[2018-10-08 18:40] LABS: Bacteria Urine None Seen; WBC Urine None Seen (0-5/HPF)
[2018-10-08 18:43] LABS: Appearance Urine UA CLEAR; Bilirubin Urine UA NEGATIVE (NEGATIVE); Color Urine UA YELLOW; Glucose Urine UA NEGATIVE (Negative); Ketones Urine UA NEGATIVE (NEGATIVE); Leukocyte Esterase Urine UA NEGATIVE (NEGATIVE); Nitrite Urine UA NEGATIVE (Negative); Occult Blood Urine UA NEGATIVE (Negative); Protein Urine UA NEGATIVE (Negative); Specific Gravity Urine UA 1.025 (1.000-1.035); Urobilinogen Urine UA 0.2 E.U./dL (0.2)
[2018-10-08 18:49] LABS: Urine Amphetamines Positive (Negative); Urine Barbiturates Negative (Negative); Urine Benzodiazepines Negative (Negative); Urine Cocaine Negative (Negative); Urine MDMA Negative (Negative); Urine Methadone Negative (Negative); Urine Methamphetamines Positive (Negative); Urine Morphine/Opi cutoff 2000 Positive (Negative); Urine Oxycodone Negative (Negative); Urine Phencyclidine Negative (Negative); Urine Tetrahydrocannabinol Positive (Negative); Urine Tricyclic Antidepressant Negative (Negative)
[2018-10-08 18:54] LABS: Culture Indicated Urine Cult Not Indicated; Mucus Urine 1+ (Negative); RBC Urine 1-5/HPF (0-5/HPF); Squamous Epithelial Cell Urine 0-1 /HPF (0-5/HPF)
[2018-10-08 19:08] VITALS: BP 104/72; PULSE 78; RESP 14; O2SAT 98
[2018-10-08 19:09] LABS: Thyroid Stimulating Hormone 0.65 uIU/mL (0.47-4.68)
== END 2018-10-08 19:57 | disposition home or self-care (01) ==
PROVIDERS: Emergency Provider Nurse Practitioner
DX: F11.93 Opioid use, unspecified with withdrawal (principal); R11.0 Nausea
CPT/HCPCS: 80053; 80305; 80320; 81001; 84443; 85025; 99282; 99283